=== PATIENT | male | born 2000 | race African-American/Black ===

== ENCOUNTER 2022-03-10 22:37 | Emergency (ER) | payer SELFPAY ==
[~2022-03-10] VITALS: Ht 170.2 cm; Wt 80.3 kg
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
--- NOTE | 2022-03-10 23:29 | NUR ---
PT DISCHARGED IN [employer] [facility]. WRITTEN AND VERBAL AFTERCARE INSTRUCTIONS PROVIDED TO PATIENT AND OFFICERS, AND BOTH VERBALIZE UNDERSTANDING OF INSTRUCTIONS. PT DISCHARGED OUT OF ER VIA WHEELCHAIR WITHOUT INCIDENT.
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
[2022-03-11 00:11] VITALS: BP 144/63
== END 2022-03-10 23:30 ==
LOC: ER 22:46
DX: S81.832A Puncture wound without foreign body, left lower leg, initial encounter (principal); W34.09XA Accidental discharge from other specified firearms, initial encounter; Y93.89 Activity, other specified; Y92.89 Other specified places as the place of occurrence of the external cause; Y99.8 Other external cause status
CPT/HCPCS: 73590-TC